=== PATIENT | female | born 1975 | race Caucasian/White ===

== ENCOUNTER → 2016-07-10 | Outpatient (CLI) | payer MEDICARE, OTHER | LOC: MW.CHNEURO 08:00 | PROVIDERS: ATTEND Psychiatry & Neurology Neuromuscular Medicine | DX: D36.10 Benign neoplasm of peripheral nerves and autonomic nervous system, unspecified (principal); G43.109 Migraine with aura, not intractable, without status migrainosus | CPT/HCPCS: 99204 ==

== ENCOUNTER → 2016-07-15 | Outpatient (CLI) | payer MEDICARE, OTHER ==
[~2016-07-15] MED LIST: Gadobutrol 7.5 mMOL/7.5 ML SDV IVPUSH STA
--- NOTE | 2016-07-16 11:53 | MR ---
EXAMINATION: MRI of the brain with and without contrast. TECHNIQUE: Multiplanar and multisequence imaging of the brain without and following the administrati on of 7.5 mL of Gadavist. HISTORY: Benign neoplasm of the peripheral nerves. FINDINGS: Cerebral hemispheres and the deep nuclei are without hemorrhage, mass, edema, or enhancement. There is a heterogeneously T2 bright and heterogeneously enhancing mass measuring 2.7 x 3.4 x 2.1 cm. This appears to originate along the right aspect of the clivus and extends anteriorly along the floor of the right temporal lobe. There is adjacent encephalomalacia within the right ventricle lobe. There is also an adjacent 1.2 x 0.6 cm nodular area anterior to the malu just right of midline with mass e ffect on the basilar artery. Ventricular system is of normal size and configuration without hydrocephalus. Brainstem and cerebell um are without hemorrhage, mass, edema, gliosis, enhancement or atrophy. Cochleae and vestibula are intact. Otomastoid airspaces are clear. No internal auditory canal or cerebellopontine angle masses or enhancement. No cranial neuritis. Paranasal sinuses are clear. G lobes, optic nerves, orbital apices, optic chiasm, optic tracts, and visual cortices are unremarkabl e. Pituitary and sella turcica are unremarkable. No meningeal enhancement. Craniocervical junction is unremarkable. No siderosis or evidence of vascular malformation. There are likely postoperative karime nges along the right temporal calvarium. IMPRESSION: 1. 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 There is also a second prepontin e smaller mass measuring 1.2 x 0.6 cm, this appears separate from the larger lesion. Comparison is m asael be beneficial to evaluate for change in size and appearance.
== END ==
LOC: MW.MRI 10:19
PROVIDERS: ATTEND Psychiatry & Neurology Neuromuscular Medicine
DX: D36.10 Benign neoplasm of peripheral nerves and autonomic nervous system, unspecified (principal); G93.89 Other specified disorders of brain
CPT/HCPCS: 70553; A9585